=== PATIENT | female | born 1955 | race Caucasian/White ===

== ENCOUNTER → 2016-10-15 | Outpatient (CLI) | payer OTHER ==
[~2016-10-15] MED LIST: ASPI-496 PO; ATOR40TA PO; DOCU100T6 PO; IBUP200T64 PO; LEVO112T4 PO; LISI1TAB3 PO; PANT40TA5 PO
[2016-10-15 14:05] LABS: HEMOGLOBIN 14.4 g/dL (11.7-16.4)
[2016-10-15 14:16] LABS: BLOOD UREA NITROGEN 11 mg/dL (7-18)
[2016-10-15 14:20] LABS: ASPARTATE AMINO TRANSFERASE 13 U/L (15-37)
== END | disposition home or self-care (01) ==
LOC: STAR 12:06
PROVIDERS: ATTEND Orthopaedic Surgery
DX: M17.0 Bilateral primary osteoarthritis of knee (principal)
CPT/HCPCS: 36415; 80053; 81003; 85025; 87081